=== PATIENT | male | born 1955 | race Caucasian/White ===

== ENCOUNTER 2016-08-11 21:10 | Emergency (ER) | payer OTHER ==
[~2016-08-11] VITALS: Ht 172.7 cm; Wt 93.2 kg
--- NOTE | 2016-08-11 21:06 | ED.REPORT ---
HPI-Stroke / CVA Aug 11, 2016 ED Provider: Jacques Castillo MD Patient is a 61 year old male with a history of seizure disorder, hepatitis C, and polysubstance abuse who presents to the ED via EMS with left sided weakness and altered mental status that began less than 1 hour prior to arrival. The patient had checked in to [facility] 3 hours ago after he stopped using methamphetamine and alcohol 8 days ago. The patient reported on intake that he has been "having mini-strokes for awhile" and that he had several recent new diagnoses while admitted to the hospital for a UTI. This evening, the patient suddenly stated that he thought he was going to have stroke and went outside to smoke a cigarette. The patient then began to shake and slumped down in his chair. He became less responsive and was mumbling incoherent statements. The patient appeared to have intermittent left sided weakness, at times unable to move his left arm or leg. EMS states that the patient was behaving oddly during transport and continued to mumble incoherently. Patient continues to mumble on arrival to the ED but is able to provide some history. The patient admits to having a seizure this morning and that he does not believe that he had a seizure this evening. He was recently diagnose with delirium when treated at a hospital south of [facility]. Patient states that his "mini-strokes" always affect his left side and only last a few seconds. Patient also reports that he is "going blind in both eyes" and that the world goes dark during these episodes. Patient states that he is no longer in withdrawal from methamphetamine and that he checked into [facility] voluntarily for ongoing treatment. 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 Patient admits to shaking chills and nausea but denies fever, chest pain, palpitations, shortness of breath, headache, cough, abdominal pain, or vomiting. He is right- hand dominant. Nursing Notes Stated Complaint: CODE STROKE Nursing Notes Reviewed: Yes Allergies: Coded Allergies: Penicillins (Unverified Allergy, Unknown, 08/11/16) codeine (Unverified Allergy, Unknown, 08/11/16) Scheduled Levetiracetam (Keppra) 750 Mg Tablet 750 MG PO BID General Time Seen by Provider: 21:11 Chief Complaint Weakness, Mental status change Left-sided Hx Obtained From: Patient, EMS Arrived By: Ambulance Time last known well approximately 8:30pm Sudden in Onset?: Yes Symptom Duration: Since onset Progression Since Onset: Gradually worsening Severity: Current: No pain currently Severity: Maximum: No pain Recent Healthcare: No recent doctor visit, No recent hospitalization Similar Sx Previous: No Past Medical History Past Medical History seizure disorder hepatitis C methamphetamine abuse per patient "mini-strokes for awhile" Past Surgical History none reported Smoking History Current Every Day Smoker Social History From out of town, in the area staying at [facility] Alcohol Use: In recovery Drug Use: In recovery, Meth Other Social History: From out of town Ambulatory Status Independent Review of Systems Unable to Obtain ROS Mental status (limited by mental status on arrival) Constitutional: Reports: Chills, Denies: Fever Eyes: Reports: Visual loss bilateral Respiratory: Denies: Non-productive cough, Shortness of breath Cardiovascular: Denies: Chest pain, Palpitations GI: Reports: Nausea, Denies: Abdominal pain, Vomiting Neurologic: Reports: Change LOC, Focal weakness, Shaking, Denies: Headache, Seizure Psychiatric: Reports: Change mental status Complete sys rev & neg: except as marked. Physical Exam Physical Exam Notes: Initial Vital Signs Vital Signs (First) Date Time Temp Pulse Resp B/P Pulse Ox O2 Delivery O2 Flow Rate FiO2 08/11/16 21:17 36.3 77 18 150/87 98 Room Air Initial VS: Reviewed Skin: Warm, Dry, No cyanosis Psychiatric: Mood/affect normal, Behavior normal, Normal thought content General/Constitutional: Awake Initially nonverbal, laying in bed with eyes closed. Grimacing with right side and ignoring the left. Became more verbal during examination, is having "delirium" per patient. Speech is fluent and making sense. Head / Eyes: Normocephalic, PERRL (2mm), EOMI Neck: Supple, Full range of motion Respiratory / Chest: Breath sounds NL, Breath sounds = bilat, No respiratory distress, No rales, No rhonchi, No wheezing Cardiovascular: Heart rate NL, Regular rhythm, Heart sounds NL, No murmurs Neurologic: No sensory deficits, CN II - XII intact Initially nonverbal, laying in bed with eyes closed. Grimacing with right side and ignoring the left. Became more verbal during examination, is having "delirium" per patient. Speech is fluent and making sense. Not moving left side in response to stimulus, but he does move his left arm and left leg spontaneously. ENT: Airway patent, Mucous membranes moist Mouth: Positive: Drooling Abdomen: Soft, Non-tender, No guarding, No rebound Upper Extremity / MS: No swelling, No deformity, Neurologic intact, Vascular intact, No edema Lower Extremity / Pelvis / MS: No swelling, No deformity, Neurologic intact, Vascular intact, No edema Interpretation & Diagnostics Interpretation & Diagnostics: Urine Dip: Positive for marijuana, opiates, and oxycodone. Lab Results Interpretation Result Diagram: 08/11/16212408/11/162124 Test 08/11/16 21:25 08/11/16 22:45 08/11/16 23:23 White Blood Count 9.2th/mm3 (3.8-10.1) Red Blood Count 5.93mil/mm3 (4.40-5.80) Hemoglobin 17.8g/dL (13.8-17.2) Hematocrit 51.7% (41.0-50.0) Mean Corpuscular Volume 87.2fL (81-100) Mean Corpuscular Hemoglobin 30.0pg (27.0-35.0) Mean Corpuscular Hemoglobin Concent 34.4% (32.0-37.0) Red Cell Distribution Width 13.6% (12.3-15.4) Platelet Count 326bil/L (150-400) Neutrophils (%) (Auto) 56.5% (40-74) Lymphocytes (%) (Auto) 30.9% (14-46) Monocytes (%) (Auto) 8.7% (4-12) Eosinophils (%) (Auto) 3.2% (0-5) Basophils (%) (Auto) 0.4% (0-3) Prothrombin Time 10.0sec (8.1-12.5) Prothromb Time International Ratio 0.94ratio Activated Partial Thromboplast Time 25.5sec (22.8-33.0) Sodium Level 139mEq/L (134-144) Potassium Level 4.2mEq/L (3.5-5.2) Chloride Level 98mEq/L (97-108) Carbon Dioxide Level 25mmol/L (18-29) Blood Urea Nitrogen 11mg/dL (8-27) Creatinine 0.75mg/dL (0.76-1.27) Estimat Glomerular Filtration Rate 113mL/min (>59) Glucose Level 75mg/dL (60-99) Calcium Level 9.8mg/dL (8.5-10.1) Total Bilirubin 0.8mg/dL (0.0-1.2) Aspartate Amino Transf (AST/SGOT) 128U/L (0-50) Alanine Aminotransferase (ALT/SGPT) 158U/L (0-44) Alkaline Phosphatase 83U/L (25-160) Troponin T 0.010ug/L (0.0-0.011) Total Protein 8.4g/dL (6.4-8.4) Albumin 4.2g/dL (3.4-5.0) Hold Gonsalez Top Tube Received (Received) Urine Color Straw (YELLOW) Urine Appearance Clear (CLEAR,HAZY) Urine pH 7.5 (5.0-8.0) Urine Specific [place] <1.005 (1.003-1.035) Urine Protein Negativemg/dL (NEG,TRACE) Urine Glucose (UA) Negativemg/dL (NEGATIVE) Urine Ketones Negativemg/dL (NEGATIVE) Urine Occult Blood Trace (NEGATIVE) Urine Nitrite Negative (NEGATIVE) Urine Bilirubin Negative (NEGATIVE) Urine Urobilinogen Normalmg/dL (NORMAL) Urine Leukocyte Esterase Negative (NEGATIVE) Urine RBC 0-2/hpf (0-2) Urine WBC 0-5/hpf (0-5) Urine Epithelial Cells Few/hpf (NONE-MOD) Urine Crystals Oxalic acid crystals (NONE Urine Bacteria Few/hpf (NONE-FEW) Urine Hyaline Casts None/lpf (NONE) Urine Granular Casts None seen (NONE SEEN) Urine Waxy Casts None seen (NONE SEEN) Urine Red Blood Cell Casts None seen (NONE SEEN) Urine White Blood Cell Casts None seen (NONE SEEN) Urine Mucus Present (None Seen) Urine Trichomonas None seen (NONE SEEN) Urine Yeast None (NONE SEEN) Urinalysis Comment None Urine Culture Reflexed Not indicated Ammonia 57ug/dL (18-53) ECG Interpretation ECG Interpretation: Sinus Rhythm, Rate 75 Time: 21:24 Interpreted by: ED physician Normal ECG Interpretation: No acute ischemic changes CT Head Interpretation IMPRESSION: 1. No acute intracranial abnormality. 2. Findings relayed to Dr. Castillo via ER frontdesk staff Cheryl, on 08.11.16 at 2123 hrs. This study fulfills neurological imaging criteria for inclusion or exclusion of acute stroke therapies based on available published neurological guidelines. Dictated by: Magnus Pandey M.D. on 08/11/2016 at 21:24 Approved by: Magnus Pandey M.D. on 08/11/2016 at 21:24 Study: Head CT no contrast Interpretation / Wet Read by: Interpret - Radiologist Re-Eval/Medical Decision Med Decision/Clinical Course 61-year-old with history of psychosis, seizures, substance abuse, hepatitis C, currently at [facility] for recovery. He had strokelike symptoms that caused them to send him here. He is resolving and resemble Tyshawn's paralysis, as they are clearly not a stroke. CT was negative. Throughout all of that he is been speaking quite clearly despite apparently not moving the left side. This is fairly clearly at least somewhat volitional, as he is moving when not requested to do so. He is basically cleared by the end of the six hour observation period here. I suspect this is either complex seizures with Tyshawn's paralysis, or psychiatric symptom cluster. He is begun with Keppra to control the symptoms, and appears to be doing well six hours post dose. He is discharged with a gram and a half daily as 750 mg by mouth twice a day. He is discharged in stable improved condition, back to [facility] via their transport. Re-Evaluation/Progress #1: Time of Eval: 23:08 Re-Evaluation/Progress Note: Rechecked the patient. CT scan was negative. Patient is still not aware of what happened this evening and what was the onset of his symptoms. He describes having epiosdes of "delirium", where he looses his vision and shakes like is having a seizure. He takes 2300mg Gabapentin daily but is not on Keppra currently. Re-Evaluation/Progress #2: Time of Eval: 02:29 Re-Evaluation/Progress Note: Rechecked the patient. He states that he still feels "lost". No acute progress was identified on his workup. Informed the patient of plan to discharge him back to [facility]. Will reassess in several hours and see if Keppra improves his overall status. The patient is [facility] and he is 20% service connected. Re-Evaluation/Progress #3: Time of Eval: 03:26 Re-Evaluation/Progress Note: Patient was informed that there are no beds available at the [facility]. Will re-evaluate him in several hours. Patient requests peanut butter and crackers. Re-Evaluation/Progress #4: Time of Eval: 05:01 Re-Evaluation/Progress Note: Rechecked the patient, who is now more awake. He is agreeable to the plan to return to [facility] on Keppra. Patient understands and agrees with the plan to return at 6am. Discharge instructions and follow-up discussed. All questions were addressed. Return to the ED warnings given. Consultation #1: Call Returned at: 04:58 Note: Spoke with [facility] about the patient's findings and plan to return the patient to their care. He will likely be discharged in an hour. Consultation #2: Call Returned at: 05:11 Note: Informed [facility] that the patient can be picked up at 6am. He has been loaded with Keppra and improved over his course in the ED. Counseled Regarding: Diagnosis, Lab results, Need for follow-up, When/why to return to ED Patient Discharge & Departure Impression: Primary Impression: Complex partial seizure Epilepsy type: partial symptomatic Intractability: not intractable Status epilepticus: without status epilepticus Qualified Code: G40.209 - Localization-related (focal) (partial) symptomatic epilepsy and epileptic syndromes with complex partial seizures, not intractable, without status epilepticus Additional Impression: Tyshawn's paralysis (postepileptic) Disposition: Home Discharge Condition All VS Reviewed: Yes Condition: Stable Patient Instructions: Epilepsy (ED) Additional Instructions: I believe your episodes of weakness and confusion are possibly post seizure symptoms. Began Keppra twice daily. Continue your gabapentin. Continue your mental health therapy as planned. At some point, an EEG needs to be obtained to evaluate for seizure activity. Follow-up with your doctors at the [facility]. Return if any immediate issues. Jamal Attestation Portions of this note were transcribed by Gabby Higuera. I, Dr. Castillo personally performed the history, physical exam and medical decision-making; I reviewed and confirmed the accuracy of the information in the transcribed note. Signed by: Jamal Loza, 08/12/2016 0517 Jacques Castillo MD Aug 11, 2016 21:06 Gabby Higuera Aug 11, 2016 21:37
[2016-08-11 21:17] VITALS: BP 150/87; PULSE 77; RESP 18; O2SAT 98
--- NOTE | 2016-08-11 21:25 | DRSVH ---
PROCEDURE: CT BRAIN (TPA) ([id number]) INDICATIONS: Stroke TECHNIQUE: Noncontrast 4.5 mm thick angled axial sections acquired from the foramen magnum to the vertex, with c oronal reformats. COMPARISON: None. FINDINGS: Image quality: Excellent. CSF spaces: Basal cisterns are patent. No extra-axial fluid collections. The ventricles are symmet christine in size and shape. Brain: No intracranial bleeds or masses. There is cerebral volume loss for age, with resultant vent ricular and sulcal prominence. There are periventricular and deep white matter chronic small vessel ischemic changes. There is intracranial internal carotid artery atherosclerosis. Skull and face: Calvarium and visualized facial bones appear intact, without suspicious lesions. Sinuses: Visualized sinuses and mastoids are clear. IMPRESSION: 1. No acute intracranial abnormality. 2. Findings [facility] Dr[facility]illo [facility] [place], on 08.11.16 at 2123 hrs. This study fulfills neurological imaging criteria for inclusion or exclusion of acute stroke therapie s based on available published neurological guidelines. Dictated by: Magnus Pandey M.D. on 08/11/2016 at 21:24 Approved by: Magnus Pandey M.D. on 08/11/2016 at 21:24
[2016-08-11 21:34] LABS: BASOPHILS % (AUTO) 0.4 % (0-3); EOSINOPHILS % (AUTO) 3.2 % (0-5); MONOCYTES % (AUTO) 8.7 % (4-12); Mean Corpuscular Volume 87.2 fL (81-100); NEUTROPHILS % (AUTO) 56.5 % (40-74); Platelet Count 326 bil/L (150-400)
[2016-08-11 21:56] LABS: INR 0.94 ratio
[2016-08-11 22:10] LABS: TROPONIN T 0.01 ug/L (0.0-0.011)
[2016-08-11 22:51] VITALS: BP 143/82; PULSE 61; RESP 16; O2SAT 97
[2016-08-11] MEDS ORDERED: levETIRAcetam Inj 1,000 MG in IV Premix 1 EACH IV ONE (23:15)
[2016-08-11 23:35] LABS: APPEARANCE,URINE CLEAR (CLEAR,HAZY); COLOR,URINE STRAW (YELLOW); PH,URINE 7.5 (5.0-8.0)
[2016-08-11 23:36] LABS: OCCULT BLOOD,URINE TRACE (NEGATIVE); UROBILINOGEN,URINE NORMAL (NORMAL)
[2016-08-12 00:12] VITALS: BP 116/60; PULSE 63
[2016-08-12 02:29] VITALS: BP 109/66; PULSE 74; RESP 19; O2SAT 96
[2016-08-12 04:44] VITALS: BP 105/65; PULSE 68; RESP 18; O2SAT 96
[2016-08-12] MEDS ORDERED: LEVE750T16 PO (05:08)
[2016-08-12 06:14] VITALS: BP 104/64; PULSE 62; RESP 24; O2SAT 98
== END 2016-08-12 06:10 | disposition home or self-care (01) ==
LOC: SED 21:10
DX: G40.209 Localization-related (focal) (partial) symptomatic epilepsy and epileptic syndromes with complex partial seizures, not intractable, without status epilepticus (principal); G83.84 Todd's paralysis (postepileptic); F15.21 Other stimulant dependence, in remission; F17.200 Nicotine dependence, unspecified, uncomplicated; B18.2 Chronic viral hepatitis C; G89.29 Other chronic pain; Z87.828 Personal history of other (healed) physical injury and trauma; Z79.891 Long term (current) use of opiate analgesic; Z88.0 Allergy status to penicillin; Z88.5 Allergy status to narcotic agent
CPT/HCPCS: 36415; 70450; 80053; 81000; 82140; 82948; 84484; 85025; 85610; 85730; 96374; 99285; J1953